=== PATIENT | female | born 1995 | race Caucasian/White ===

== ENCOUNTER 2020-11-18 14:16 | Outpatient (CLI) | payer OTHER, SELFPAY ==
--- NOTE | ~2020-11-18 | XR_ITS ---
XR hand LT 2V 11/18/2020 14:35 INDICATION: Abnormal sensation left fourth finger PROCEDURE: 2 views left hand COMPARISON: No prior studies for comparison. FINDINGS: Fracture, dislocation or subluxation is not identified. The soft tissues appear within norm al limits. No foreign bodies are identified. IMPRESSION: 1: NO ACUTE BONE OR JOINT ABNORMALITY IDENTIFIED. Reviewed, dictated and finalized at location A. [employer]
== END 2020-11-18 14:17 | disposition home or self-care (01) ==
PROVIDERS: PCP Internal Medicine Gastroenterology; Visit Provider Internal Medicine Gastroenterology
DX: R20.9 Unspecified disturbances of skin sensation (principal)
CPT/HCPCS: 73120

== ENCOUNTER 2021-10-12 16:40 | Emergency (ER) | payer OTHER, SELFPAY ==
[2021-10-12 16:53] VITALS: BP 129/77; PULSE 118; RESP 18; TEMP 38; O2SAT 100
--- NOTE | 2021-10-12 17:50 | ED.URI ---
HPI - URI/Sore Throat General Chief Complaint: Upper Respiratory Infection Stated Complaint: body,head and earache Time Seen by Provider: 10/12/21 17:50 Source: patient and RN notes reviewed Mode of arrival: ambulatory Limitations: no limitations History of Present Illness HPI Narrative: 26-year-old female presents with concern for headache for 4 days, earache, body aches for 2 days. She reports she has been alternating Tylenol and ibuprofen. She denies known sick contacts. MD elicited complaint: cough and sore throat Related Data Allergies Allergy/AdvReac Type Severity Reaction Status Date / Time No Known Allergies Allergy Verified 10/12/21 17:05 Review of Systems Review of Systems: CONSTITUTIONAL: Reports malaise, chills, sweats, or fever. EYES: Denies visual changes, redness, or discharge. ENT: Denies rhinorrhea, congestion, sinus pain, and sore throat. Reports areas CARDIOVASCULAR: Denies chest pain, palpitations, or edema. RESPIRATORY: Reports cough. Denies dyspnea. GASTROINTESTINAL: Denies abdominal pain, nausea, vomiting, diarrhea SKIN: Denies rash or itching. MUSCULOSKELETAL: Reports myalgia. NEUROLOGIC: Reports headache. All systems reviewed & are unremarkable except as noted in HPI and below PMFSH Comments At time of signature, agree with nursing past medical, surgical, social and family history. There is no relevant family history pertinent to the presenting complaint Exam Narrative: GENERAL: Well-appearing, well-nourished, and in no acute distress. HEAD: Normocephalic EYES: PERRLA, conjunctivae clear ENT: Nares clear, turbinates edematous and erythematous, clear discharge. Mucous membranes moist. TM pearly lovett with dull light reflex bilaterally; no tragal tenderness. Oropharynx not erythematous without lesions. Tonsils not enlarged and without exudate, no drooling, no hoarseness, no trismus, uvula midline. NECK: Supple. No lymphadenopathy CHEST: Clear to auscultation, breath sounds equal. No wheezing, rhonchi, rales, or stridor. No respiratory distress, speaks in full sentences. HEART: Regular rate and rhythm. No murmur heard. SKIN: Warm, dry, no rash. NEURO: Alert and oriented x3. PSYCH: Normal mood and affect Course Course Emergency Course: Patient is aware of diagnosis, understands and agrees to treatment plan. Anticipatory guidance given. Patient agrees to follow-up as directed and is aware of reasons to seek care at the emergency department. Portions of this record may have been created with voice recognition software Vital Signs Vital signs: Vital Signs Temperature 100.4 F H 10/12/21 16:53 Pulse Rate 118 H 10/12/21 16:53 Respiratory Rate 18 10/12/21 16:53 Blood Pressure 129/77 10/12/21 16:53 Pulse Oximetry 100 10/12/21 16:53 Temperature 100.4 F H 10/12/21 16:53 Pulse Rate 118 H 10/12/21 16:53 Respiratory Rate 18 10/12/21 16:53 Blood Pressure 129/77 10/12/21 16:53 Pulse Oximetry 100 10/12/21 16:53 Reviewed. MDM - URI/Sore Throat MDM Narrative Medical decision making narrative: Differential diagnosis considered: Lynch virus, strep pharyngitis, allergic rhinitis, upper respiratory tract infection, sinusitis, rhinosinusitis, nasopharyngitis. viral pharyngitis, otitis media, otitis externa, pneumonia, bronchitis, viral cough syndrome, viral syndrome, and influenza. Exam findings show no acute concerns or changes; patient is non-toxic appearing and is in no distress. Patient is appropriate for outpatient treatment and follow-up. Lab Data Attestation: I reviewed the patient's lab results. Labs: Influenza A Screen Negative Reference Range: Negative Influenza B Screen Negative Reference Range: Negative Critical Care Time Critical Care Time Critical Care Time: No Discharge Plan Discharge Clinical Impression: Acute viral syndrome P
[2021-10-13 14:05] LABS: SARS-CoV-2 RNA PCR Positive
== END 2021-10-12 18:05 | disposition home or self-care (01) ==
PROVIDERS: Emergency Provider Nurse Practitioner; PCP Internal Medicine Gastroenterology
DX: U07.1 COVID-19 (principal)
CPT/HCPCS: 87426; 87804; 99213; C9803; G0463; U0003; U0005

== ENCOUNTER 2023-03-04 10:42 | Outpatient (CLI) | payer OTHER, SELFPAY ==
[2023-03-04 11:27] LABS: Basophils Absolute Auto 0.1 K/mm3 (0.0-0.1); Basophils Percent Auto 0.6 % (0.2-1.2); Eosinophils Absolute Auto 0.2 K/mm3 (0-0.3); Eosinophils Percent Auto 2.1 % (0-4.4); Hematocrit 43.5 % (37.0-47.0); Hemoglobin 14.5 g/dL (12.0-15.0); Immature Granulocyte Absolute 0.04 K/mm3 (0.00-0.031); Immature Granulocyte Percent A 0.4 % (0-0.5); Lymphocytes Absolute Auto 3.09 K/mm3 (0.9-3.2); Lymphocytes Percent Auto 34.1 % (18.3-44.2); Mean Corpuscular HGB Conc 33.3 g/dl (32-36); Mean Corpuscular Hemoglobin 30.5 pg (26-34); Mean Corpuscular Volume 91.4 fl (80-100); Mean Platelet Volume 9.9 fl (7.4-10.4); Monocytes Absolute Auto 0.5 K/mm3 (0.1-0.6); Monocytes Percent Auto 5.5 % (2.6-8.5); Neutrophils Absolute Auto 5.2 K/mm3 (1.3-6.7); Neutrophils Percent Auto 57.3 % (45.5-73.1); Platelet Count Result 250 k/mm3 (150-375); Red Blood Count 4.76 M/mm3 (4.2-5.4); Red Cell Distribution Width 11.6 % (11.5-14.5); White Blood Count 9.1 K/mm3 (4.5-10.0)
[2023-03-04 11:30] LABS: Hemoglobin A1C 4.9 % (<5.7)
[2023-03-04 11:39] LABS: Alanine Aminotransferase 40 U/L (6-35); Albumin Level 4.7 g/dL (3.5-5.1); Alkaline Phosphatase 89 U/L (38-126); Anion Gap 6 mmol/L (8-16); Aspartate Amino Transferase 72 U/L (14-36); Bilirubin,Total 0.8 mg/dL (0.2-1.3); Blood Urea Nitrogen 17 mg/dL (7-17); Calcium 8.6 mg/dL (8.4-10.2); Carbon Dioxide 25 mmol/L (22-30); Chloride 108 mmol/L (98-107); Cholesterol 176 mg/dL (0-200); Estimated Glomerular Filt Rate > 60; Glucose 97 mg/dL (65-110); HDL Direct 68 mg/dL; Potassium 4.7 mmol/L (3.4-5.0); Sodium 139 mmol/L (137-145); Triglycerides 58 mg/dL (<150)
[2023-03-04 11:53] LABS: LDL Cholesterol Direct 90 mg/dL
[2023-03-04 12:09] LABS: Thyroid Stimulating Hormone 0.681 uIU/mL (0.465-4.680); Total Triiodothyronine (T3) 1.18 NG/ML (0.97-1.69)
[2023-03-04 12:33] LABS: Free T4 Free Thyroxine 0.83 ng/mL (0.78-2.19)
[2023-03-04 12:45] LABS: Folic Acid 18.1 ng/mL (2.76->20)
== END 2023-03-04 10:43 | disposition home or self-care (01) ==
PROVIDERS: PCP Internal Medicine Gastroenterology; Visit Provider Internal Medicine Cardiovascular Disease
DX: E53.8 Deficiency of other specified B group vitamins (principal); E55.9 Vitamin D deficiency, unspecified; R06.02 Shortness of breath; G47.30 Sleep apnea, unspecified; R07.9 Chest pain, unspecified; R00.2 Palpitations; Z82.49 Family history of ischemic heart disease and other diseases of the circulatory system; Z72.0 Tobacco use; E66.9 Obesity, unspecified; R80.9 Proteinuria, unspecified
CPT/HCPCS: 36415; 80053; 80061; 82306; 82607; 82746; 83036; 84439; 84443; 84480; 85025

== ENCOUNTER 2023-06-12 10:36 | Outpatient (CLI) | payer OTHER, SELFPAY ==
--- NOTE | ~2023-06-12 | XR_ITS ---
EXAMINATION: XR chest 2V Exam Date/Time: 06/12/2023 10:50 CDT HISTORY: CHEST PAIN UPON EXERTION Comparison: 12/18/2018. RESULT: Lines, tubes, and devices: None. Lungs and pleura: Clear. Cardiomediastinal silhouette: Stable. Other: No acute osseous or upper abdominal finding. IMPRESSION: No acute cardiopulmonary process. Reviewed, dictated and finalized at location K.
--- NOTE | ~2023-06-12 | XR_ITS ---
EXAM: XR lumbar spine 2-3V DATE: 06/12/2023 10:58 HISTORY: LOW BACK PAIN, DOES NOT RADIATE . COMPARISON: None available. FINDINGS: 5 nonrib-bearing lumbar-type vertebral bodies. Pedicles intact. Normal vertebral body alig nment. Vertebral body heights preserved. Mild disc space narrowing at L4-5 and L5-S1. Normal facets a nd posterior elements. No fracture or dislocation. IMPRESSION: Mild lower lumbar degenerative disc disease. Reviewed, dictated and finalized at location K.
== END 2023-06-12 10:37 | disposition home or self-care (01) ==
PROVIDERS: PCP Internal Medicine Gastroenterology; Visit Provider Internal Medicine Gastroenterology
DX: R20.0 Anesthesia of skin (principal); R07.9 Chest pain, unspecified; M51.36 Other intervertebral disc degeneration, lumbar region
CPT/HCPCS: 71046; 72100

== ENCOUNTER 2023-08-14 09:01 | Emergency (ER) | payer OTHER, SELFPAY ==
[2023-08-14 09:21] VITALS: BP 119/67; PULSE 106; RESP 16; TEMP 37.2; O2SAT 99
--- NOTE | 2023-08-14 09:25 | ED.URI ---
HPI - URI/Sore Throat General Chief Complaint: Upper Respiratory Infection Stated Complaint: Ears Irritation/Sore Throat Time Seen by Provider: 08/14/23 09:23 Source: patient Mode of arrival: ambulatory Limitations: no limitations History of Present Illness HPI Narrative: Nayeli is a 28-year-old female patient presenting to the clinic today with complaints of sore throat, shortness of breath, and bilateral ear pain. She reports the symptoms of ear pain and sore throat started last night. Woke up this morning and felt short of breath. MD elicited complaint: sore throat and nasal congestion Related Data Allergies Allergy/AdvReac Type Severity Reaction Status Date / Time No Known Allergies Allergy Verified 10/12/21 17:05 Review of Systems Review of Systems: Pertinent positives per HPI. Patient denies any fever, chills, rash, headache, visual changes, dizziness, chest pain, palpitations, nausea, vomiting, diarrhea, constipation, abdominal pain, or any urinary issues. PMFSH Comments At the time of my signature, I reviewed and agree with the nursing past medical, surgical, social, and family history. There is no relevant family history pertinent to the patient complaint. Exam Narrative: General: Well-developed, well nourished, in no apparent distress Head: Normocephalic, atraumatic Eyes: Pupils equally round and reactive to light bilaterally, EOM intact, sclera and conjunctive clear, no discharge, lids normal Ears: TMs intact and congested, ear canals clear, no drainage, grossly hearing normal. Nose: Nares patent, clear nasal discharge, no inflammation, no sinus tenderness. Mouth: Oral pharynx red without lesions or masses, good dentition, MMM. Neck: Supple, trachea midline, no enlargement of anterior or posterior cervical nodes, no thyroid masses or goiter palpable. Cardio: Regular rate and rhythm, s1 and s2 normal, no murmur appreciated. Resp: Clear to auscultation bilaterally, no rhonchi, rales, wheezing or rubs Course Course Emergency Course: Portions of this record may have been created with voice recognition software. Level of Care: Express Care Visit Vital Signs Vital signs: Vital Signs Temperature 37.2 C 08/14/23 09:21 Pulse Rate 106 H 08/14/23 09:21 Respiratory Rate 16 08/14/23 09:21 Blood Pressure 119/67 08/14/23 09:21 Pulse Oximetry 99 11/01/23 09:21 Oxygen Delivery Room Air 08/14/23 09:21 Temperature 37.2 C 08/14/23 09:21 Pulse Rate 106 H 08/14/23 09:21 Respiratory Rate 16 08/14/23 09:21 Blood Pressure 119/67 08/14/23 09:21 Pulse Oximetry 99 08/14/23 09:21 Oxygen Delivery Room Air 08/14/23 09:21 Vital signs reviewed MDM - URI/Sore Throat MDM Narrative Medical decision making narrative: At the time of visit patient is resting comfortably on the exam table. Strep test, COVID, and influenza testing was performed-all testing was negative. I suspect patient has URI/pharyngitis/viral syndrome. Supportive measures were discussed with the patient she voiced understanding discharge instructions agrees to treatment plan. Differential Diagnosis Differential diagnosis: Likely upper respiratory infection, otitis media, sinusitis, viral infection, bronchitis, influenza, pharyngitis and other (COVID) Discharge Plan Discharge Clinical Impression: Viral infection Upper respiratory infection Qualifiers: URI type: unspecified URI Qualified Code(s): J06.9 - Acute upper respiratory infection, unspecified Pharyngitis Qualifiers: Pharyngitis/tonsillitis etiology: unspecified etiology Qualified Code(s): J02.9 - Acute pharyngitis, unspecified Patient Disposition: Home, Self-Care Condition: Stable Instructions: Antibiotic Form, Pharyngitis (ED), Upper Respiratory Infection (ED), Viral Syndrome (ED) Additional Instructions: COVID, influenza, and strep test were all negative. Strep test will be sent for culture if this comes back positive we will
== END 2023-08-14 09:45 | disposition home or self-care (01) ==
PROVIDERS: Emergency Provider Nurse Practitioner Family; PCP Internal Medicine Gastroenterology
DX: B34.9 Viral infection, unspecified (principal); J06.9 Acute upper respiratory infection, unspecified; J02.9 Acute pharyngitis, unspecified; Z20.822 Contact with and (suspected) exposure to COVID-19
CPT/HCPCS: 87081; 87426; 87804; 87880; 99213; C9803; G0463

== ENCOUNTER 2023-12-25 11:12 | Outpatient (CLI) | payer OTHER, SELFPAY ==
--- NOTE | ~2023-12-25 | XR_ITS ---
EXAMINATION: XR thoracic spine 2V DATE: 12/25/2023 11:38 INDICATION: Pain in thoracic spine. TECHNIQUE: 3 views of thoracic spine on 4 radiographs were obtained. COMPARISON: Chest 2 views 06/12/2023 FINDINGS: There is 9 degrees dextrocurvature of thoracic spine. Vertebral body heights are normal. In tervertebral disc heights are normal. The facet joints are unremarkable. IMPRESSION: 1. No etiology for the patient's symptoms. Reviewed, dictated and finalized at location A.
== END 2023-12-25 11:13 | disposition home or self-care (01) ==
LOC: ANHIMG 11:14
PROVIDERS: PCP Internal Medicine Gastroenterology; Visit Provider Internal Medicine Gastroenterology
DX: M54.6 Pain in thoracic spine (principal)
CPT/HCPCS: 72070

== ENCOUNTER 2024-01-24 08:42 | Emergency (ER) | payer OTHER, SELFPAY ==
--- NOTE | ~2024-01-24 | XR_ITS ---
EXAMINATION: XR ankle RT min 3V DATE: 01/24/2024 09:18 INDICATION: Right ankle pain and swelling. Fall. TECHNIQUE: 4 views of right ankle were obtained. COMPARISON: None. FINDINGS: Bone alignment is normal. There is a chip of bone lateral to calcaneus. There is mild osteo arthritis of talonavicular joint. There is an enthesophyte at plantar aspect of calcaneal tuberosity. Ankle soft tissue swelling is noted. IMPRESSION: 1. Chip of bone lateral to calcaneus that may be an acute avulsion fracture. Consider foot radiograph s. Reviewed, dictated and finalized at location A. IMPRESSION: 1. Chip of bone lateral to calcaneus that may be an acute avulsion fracture. Co nsider foot radiographs.
--- NOTE | ~2024-01-24 | XR_ITS ---
EXAMINATION: XR foot RT min 3V DATE: 01/24/2024 09:41 INDICATION: Right foot pain and swelling. Fall. TECHNIQUE: 4 views of right foot were obtained. COMPARISON: None. FINDINGS: Bone alignment is normal. There is a chip of bone dorsolateral to anterior process of calca neus. There is mild osteoarthritis of first metatarsophalangeal joint and talonavicular joint. There is an enthesophyte at plantar aspect of calcaneal tuberosity. IMPRESSION: 1. Chip of bone dorsolateral to anterior process of calcaneus that may be an avulsion fracture. Reviewed, dictated and finalized at location A. IMPRESSION: 1. Chip of bone dorsolateral to anterior process of calcaneus that may be an av ulsion fracture.
--- NOTE | ~2024-01-24 | XR_ITS ---
EXAMINATION: XR toe 1st LT min 2V DATE: 01/24/2024 09:18 INDICATION: Left great toe pain and swelling. Fall. TECHNIQUE: 4 views of left great toe were obtained. COMPARISON: None. FINDINGS: Bone alignment is normal. No fracture. There is mild osteoarthritis of first metatarsophala ngeal joint and first interphalangeal joint. IMPRESSION: 1. Mild polyarticular osteoarthritis. Reviewed, dictated and finalized at location A.
[2024-01-24 08:54] VITALS: BP 121/71; PULSE 81; RESP 16; TEMP 36.8; O2SAT 100
--- NOTE | 2024-01-24 08:55 | ED.LOWEXIN ---
HPI - Extremity Injury (Lower) General Chief Complaint: Extremity Injury, Lower Stated Complaint: Right Ankle Pain Time Seen by Provider: 01/24/24 08:55 Source: patient Mode of arrival: ambulatory Limitations: no limitations History of Present Illness HPI Narrative: 28-year-old female presents with complaint of pain to right ankle with swelling and bruising, pain and swelling to left great toe. Patient reports yesterday while walking out of for how she twisted ankle between rock and grass and fell. Patient ambulatory with limp. Decreased range of motion to right ankle due to pain, distal neurovascularly intact. All systems reviewed and negative except as noted above. Related Data Home Medications Medication Instructions Recorded Confirmed No Home Medications 01/24/24 01/24/24 Allergies Allergy/AdvReac Type Severity Reaction Status Date / Time clonazepam AdvReac Flushing Verified 01/24/24 09:29 PT HAS A THIRD UNKNOWN AdvReac Unknown Uncoded 01/24/24 09:29 ALLERGY UNKNOWN NON-NARCOTIC PAIN MED AdvReac Unknown Uncoded 01/24/24 09:29 Review of Systems Review of Systems: CONSTITUTIONAL: Denies fever, chills, or sweats. EYES: Denies visual changes, redness, or discharge. ENT: Denies rhinorrhea, congestion, sore throat, or otalgia. CARDIOVASCULAR: Denies chest pain, palpitations, or edema. RESPIRATORY: Denies cough or dyspnea. GASTROINTESTINAL: Denies abdominal pain, nausea, vomiting, or diarrhea. GENITOURINARY: Denies dysuria or hematuria. SKIN: Denies rash or itching. MUSCULOSKELETAL: Reports right ankle pain and swelling, left great toe pain and swelling. NEUROLOGIC: Denies headache, numbness, or weakness. PSYCHIATRIC: Denies anxiety or depression. All other systems reviewed are negative, except as documented in HPI. PMFSH Comments At time of signature, agree with nursing past medical, surgical, social and family history. There is no relevant family history pertinent to the presenting complaint. Exam Narrative: GENERAL: This is a well-nourished, well-developed patient, in no apparent distress. HEAD: normocephalic, atraumatic. EYES: PERRL. Sclera clear/white. Vision is grossly intact. EARS: External ears normal NOSE: External nose normal NECK: Neck supple, non-tender without lymphadenopathy, masses or thyromegaly. CARDIOVASCULAR: Regular rate and rhythm without murmurs, gallops, or rubs. RESPIRATORY: Clear to auscultation. Breath sounds equal bilaterally. No wheezes, rales, or rhonchi. SKIN: warm, Dry, intact with no suspicious lesions or rash, good texture and turgor. NEURO: awake, alert, and oriented to person, place and time. There were no obvious focal neurologic abnormalities. EXTREMITIES: Tenderness on palpation to lateral aspect of right ankle, proximal dorsal aspect the right foot. Swelling and bruising noted. Range of motion decreased due to pain, distal neurovascularly intact. Tenderness on palpation to distal aspect of left 1st metatarsal with mild swelling. Course Course Level of Care: Express Care Visit Vital Signs Vital signs: Vital Signs Temperature 36.8 C 01/24/24 08:54 Pulse Rate 81 01/24/24 08:54 Respiratory Rate 16 01/24/24 08:54 Blood Pressure 121/71 01/24/24 08:54 Pulse Oximetry 100 01/24/24 08:54 Oxygen Delivery Room Air 01/24/24 08:54 Temperature 36.8 C 01/24/24 08:54 Pulse Rate 81 01/24/24 08:54 Respiratory Rate 16 01/24/24 08:54 Blood Pressure 121/71 01/24/24 08:54 Pulse Oximetry 100 01/24/24 08:54 Oxygen Delivery Room Air 01/24/24 08:54 Reviewed MDM - Extremity Injury (Lower) MDM Narrative Medical decision making narrative: discussed x-ray results with patient. Patient placed in a short-leg posterior OCL. Distal neurovascularly intact pre and postprocedure. Refer to orthopedics for fracture care. Patient is aware of diagnosis, understands and agrees to treatment plan. Anticipatory amber
== END 2024-01-24 10:15 | disposition home or self-care (01) ==
PROVIDERS: Emergency Provider Nurse Practitioner Family; PCP Internal Medicine Gastroenterology
DX: S82.891A Other fracture of right lower leg, initial encounter for closed fracture (principal); X50.9XXA Other and unspecified overexertion or strenuous movements or postures, initial encounter; S93.502A Unspecified sprain of left great toe, initial encounter
CPT/HCPCS: 29515; 73610; 73630; 73660; 99214; G0463